=== PATIENT | male | born 1985 ===

== ENCOUNTER 2020-02-23 23:55 | Emergency (ER) | payer OTHER ==
[~2020-02-23] VITALS: Ht 175.3 cm; Wt 74.8 kg
[2020-02-24] MEDS ORDERED: Bactrim Ds Tab1 EACH PO (00:31)
[2020-02-24] MEDS ORDERED: CEPH500 PO (00:31)
[2020-02-24] MEDS ORDERED: SUBOXONE 4 MG-1 EACH SL (00:41)
== END 2020-02-24 00:46 | disposition home or self-care (01) ==
LOC: ER 23:55
DX: L03.113 Cellulitis of right upper limb (principal); L98.9 Disorder of the skin and subcutaneous tissue, unspecified; F17.290 Nicotine dependence, other tobacco product, uncomplicated; Z88.8 Allergy status to other drugs, medicaments and biological substances
CPT/HCPCS: 99283; A9270-GY